=== PATIENT | male | born 1995 | race Caucasian/White ===

== ENCOUNTER 2021-02-23 03:40 | Emergency (ER) | payer BC ==
[2021-02-23] MEDS ORDERED: Lidocaine 1% with EPINEPHrine 1:100,000 50 ML MDV INJECT ONE (04:11)
[2021-02-23] MEDS ORDERED: Bacitracin/Neomycin/Polymyxin B Oint 28.4 GM Tube TOP ONE ×3 (04:38→04:51)
[2021-02-23] MEDS ORDERED: Diphtheria,Pertussis(Acell),Tetanus Vaccine 0.5 ML Syringe IM ONE (04:41)
[2021-02-23] MEDS ORDERED: Bacitracin/Neomycin/Polymyxin B Oint 0.9 GM U/D Packet TOP ONE (04:54)
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
== END 2021-02-23 05:22 ==
LOC: CC.ED 03:40
DX: S81.811A Laceration without foreign body, right lower leg, initial encounter (principal); S91.112A Laceration without foreign body of left great toe without damage to nail, initial encounter; S01.81XA Laceration without foreign body of other part of head, initial encounter; W10.8XXA Fall (on) (from) other stairs and steps, initial encounter; Z72.0 Tobacco use
CPT/HCPCS: 12001; 70450; 71046; 72125; 72170; 90471; 90715; 99284-25; A9270-GY